=== PATIENT | female | born 1985 | race Two or more races ===

== ENCOUNTER 2016-12-08 16:39 | Emergency (ER) | payer OTHER ==
[~2016-12-08] VITALS: Ht 152.4 cm; Wt 68.5 kg
[2016-12-08 16:39] VITALS: BP 116/66
[2016-12-08] MEDS ORDERED: KETOROLAC TROMETHAMINE INJ 60 MG/2 ML VIAL IM ONE ×2 (17:00→17:53)
--- NOTE | 2016-12-08 18:02 | NUR ---
KATERINA VELASQUEZ IS AWARE THAT PATIENT REFUSED TEST, PT STS THAT SHE'S NOT .
== END 2016-12-08 18:06 | disposition home or self-care (01) ==
LOC: ER 16:42
DX: S13.9XXA Sprain of joints and ligaments of unspecified parts of neck, initial encounter (principal); M54.9 Dorsalgia, unspecified; V49.9XXA Car occupant (driver) (passenger) injured in unspecified traffic accident, initial encounter; Y93.89 Activity, other specified; Y92.413 State road as the place of occurrence of the external cause; Y99.8 Other external cause status
CPT/HCPCS: 72040; 72070; 96372; 99284; A4606; J1885; Z7610